=== PATIENT | male | born 1970 | race Two or more races ===

== ENCOUNTER 2017-05-11 11:08 | Emergency (ER) | payer MEDICAID ==
[~2017-05-11] VITALS: Ht 175.3 cm; Wt 81.6 kg
[2017-05-11 11:59] VITALS: BP 102/72
== END 2017-05-11 12:29 | disposition home or self-care (01) ==
LOC: ER 11:08
DX: S63.502A Unspecified sprain of left wrist, initial encounter (principal); F17.210 Nicotine dependence, cigarettes, uncomplicated; X58.XXXA Exposure to other specified factors, initial encounter; Y93.89 Activity, other specified; Y99.8 Other external cause status; Y92.89 Other specified places as the place of occurrence of the external cause
CPT/HCPCS: 73110